=== PATIENT | male | born 1950 | race Caucasian/White ===

== ENCOUNTER → 2017-07-11 | Outpatient (CLI) | payer MEDICARE, OTHER | END | disposition home or self-care (01) | LOC: KCIC MRI 11:51 | DX: S83.242A Other tear of medial meniscus, current injury, left knee, initial encounter (principal); X58.XXXA Exposure to other specified factors, initial encounter; Y93.9 Activity, unspecified; Y93.89 Activity, other specified; Y92.89 Other specified places as the place of occurrence of the external cause; Y99.8 Other external cause status | CPT/HCPCS: 73721 ==

== ENCOUNTER 2017-08-27 10:51 | Day surgery (SDC) | payer MEDICARE, OTHER ==
[~2017-08-27 10:51] MED LIST: HYDROmorphone 2 MG/ML VIAL IV; MORPHINE SULFATE 2 MG/ML DISP.SYRIN. IV; ONDANSETRON PF 4 MG/2 ML VIAL. IV; PROCHLORPERAZINE 10 MG/2 ML VIAL. IV; fentaNYL PF VIAL 100 MCG/2 ML VIAL IV
[2017-08-27] MEDS ORDERED: ONDANSETRON PF 4 MG/2 ML VIAL. (11:12)
[2017-08-27] MEDS ORDERED: PROPOFOL 20 ML IV (11:12)
[2017-08-27] MEDS ORDERED: fentaNYL PF VIAL 100 MCG/2 ML VIAL (11:12)
[2017-08-27] MEDS ORDERED: LIDOCAINE 2% PF Vial for OR 5 ML VIAL. (11:12)
[2017-08-27] MEDS ORDERED: DEXAMETHASONE SOD PHOS 20 MG/5 ML VIAL. (11:12)
[2017-08-27] MEDS: IV RINGERS,LACTATED 1000ML 1,000 ML IV (11:27)
[2017-08-27] MEDS: BUPIVAC MPF-EPI 0.5%-1:200000 30 ML VIAL. INJ (14:42)
[2017-08-27] MEDS ORDERED: SEVOFLURANE 31 TO 60 MINUTES. IH (14:43)
[2017-08-27] MEDS: LIDOCAINE 1% PF 2 ML VIAL. ID (15:37)
[2017-08-27] MEDS: HYDROcodone/APAP 7.5/325MG 1 TAB TABLET PO (15:40)
== END 2017-08-27 16:25 | disposition home or self-care (01) ==
LOC: SURG 10:51
DX: S83.242A Other tear of medial meniscus, current injury, left knee, initial encounter (principal); I10 Essential (primary) hypertension; K21.9 Gastro-esophageal reflux disease without esophagitis; F17.200 Nicotine dependence, unspecified, uncomplicated; M19.90 Unspecified osteoarthritis, unspecified site; Z86.69 Personal history of other diseases of the nervous system and sense organs; Z80.1 Family history of malignant neoplasm of trachea, bronchus and lung; Z98.890 Other specified postprocedural states; Z72.89 Other problems related to lifestyle; Z87.39 Personal history of other diseases of the musculoskeletal system and connective tissue; X58.XXXA Exposure to other specified factors, initial encounter; Y93.89 Activity, other specified; Y92.89 Other specified places as the place of occurrence of the external cause; Y99.8 Other external cause status
CPT/HCPCS: 29881; J0690; J1100; J2405; J2704; J3010; J3490; J7120

== ENCOUNTER → 2017-12-09 | Day surgery (SDC) | payer MEDICARE, OTHER ==
[~2017-12-09] MED LIST changes: +DEXAMETHASONE SOD PHOS 20 MG/5 ML VIAL.; -HYDROmorphone 2 MG/ML VIAL IV; +LIDOCAINE 1% PF 2 ML VIAL. ID; +LIDOCAINE 2% PF Vial for OR 5 ML VIAL.; +MIDAZOLAM HCL/PF 2 MG/2 ML VIAL.; -MORPHINE SULFATE 2 MG/ML DISP.SYRIN. IV; +MORPHINE SULFATE 4 MG/ML DISP.SYRIN. IV; +ONDANSETRON PF 4 MG/2 ML VIAL.; +PROPOFOL 20 ML IV; +ePHEDrine PF IN SALINE 50 MG/5 ML DISP.SYRIN IV; +fentaNYL PF VIAL 100 MCG/2 ML VIAL
[2017-12-09] MEDS: IV RINGERS,LACTATED 1000ML 1,000 ML IV (06:49)
[2017-12-09] MEDS: LIDOCAINE 1% PF 30 ML VIAL. (08:00)
[2017-12-09] MEDS: HYDROcodone/APAP 5/325MG 1 TAB TABLET PO (08:53)
== END | disposition home or self-care (01) ==
LOC: SURG 06:02
DX: M65.332 Trigger finger, left middle finger (principal); I10 Essential (primary) hypertension; K21.9 Gastro-esophageal reflux disease without esophagitis; Z98.890 Other specified postprocedural states; Z80.1 Family history of malignant neoplasm of trachea, bronchus and lung; Z72.89 Other problems related to lifestyle; Z79.899 Other long term (current) drug therapy; G47.30 Sleep apnea, unspecified; N40.0 Benign prostatic hyperplasia without lower urinary tract symptoms; M19.90 Unspecified osteoarthritis, unspecified site; Z87.891 Personal history of nicotine dependence
CPT/HCPCS: 26055; A7015; J0690; J1100; J2250; J2405; J2704; J3010